=== PATIENT | female | born 1985 ===

== ENCOUNTER 2017-03-21 16:59 | Emergency (ER) | payer MEDICAID ==
[2017-03-21 17:09] VITALS: BP 121/74; PULSE 73; RESP 16; TEMP 98.4; O2SAT 98
--- NOTE | 2017-03-21 17:11 | EDPHY ---
H & P Time Seen by Provider: 03/21/17 17:11 HPI/ROS: Chief complaint. Foot injury HPI. 31-year-old female presents with 2 day history right foot injury. She was running and rolled her foot over. She has pain to the right midfoot. It hurts to walk and move her foot inward. No previous history of fracture. No ankle or knee pain. No other injuries ROS Constitutional. no fever/chills, no weakness Eyes. no problems with vision ENT. no sore throat, no nasal drainage Cardiovascular. no chest pain Respiratory. no shortness of breath, no cough Abdominal. no abdominal pain, no nausea/vomiting, no diarrhea . no problems urinating MS. right foot pain Skin. no rash Lymph. no swollen glands Neuro. no headache, no dizziness, no difficulty walking or with speech Past Medical/Surgical History: Asthma, adrenal and thyroid issues Social History: Single, nonsmoker, no alcohol Smoking Status: Never smoked Physical Exam: General Appearance: Alert well-developed female mild distress vital signs stable Eyes: Pupils equal and round no pallor or injection. ENT, Mouth: Mucous membranes are moist. Respiratory: There are no retractions, lungs are clear to auscultation. Cardiovascular: Regular rate and rhythm. Gastrointestinal: Abdomen is soft and nontender, no masses, bowel sounds normal. Neurological: Awake and alert, sensory and motor exams grossly normal. Skin: Warm and dry, no rashes. Musculoskeletal: Neck is supple nontender. Extremities tenderness to palpation base of 5th metatarsal. Some tenderness to the dorsum of the midfoot over the 4th and 5th metatarsal tarsals. No obvious deformity or swelling. Psychiatric: Patient is oriented X 3, there is no agitation. Constitutional: Initial Vital Signs Temperature (C) 36.9 C 03/21/17 17:00 Heart Rate 73 03/21/17 17:00 Respiratory Rate 16 03/21/17 17:00 Blood Pressure 121/74 H 03/21/17 17:00 O2 Sat (%) 98 03/21/17 17:00 O2 Delivery Mode Room Air Allergies/Adverse Reactions: No Known Allergies Allergy (Verified 03/21/17 17:05) Home Medications: Medication Instructions Recorded Albuterol Sulfate [Proventil Hfa] 6.7 gm 03/21/17 FLUTICASONE/SALMETEROL [ADVAIR HFA 1 puffs 03/21/17 230-21 [facility] INHALER] Medical Decision Making - Diagnostics Imaging Results: Imaging Impressions Foot X-Ray 03/21/17 17:17 Impression: No acute osseous findings. X-ray right foot shows no evidence of fracture ED Course/Re-evaluation: Re-evaluation 5:45 p.m.. Patient is stable. She and I discussed imaging study results, treatment plan including criteria for return importance of follow-up further evaluation. She expresses understanding and agreement patient has an orthotic boot from her fracture last year that was on her left foot. The boot appears to be generic. The boot is replaced on her right foot. Shows good anatomic position and distal motor vascular sensitivity to be intact Differential Diagnosis: I considered fracture, dislocation, sprain Departure - Departure Disposition: Home, Routine, Self-Care Clinical Impression: Foot sprain Qualifiers: Encounter type: initial encounter Laterality: right Qualified Code(s): S93.601A - Unspecified sprain of right foot, initial encounter Condition: Good Instructions: Foot Sprain (ED) Additional Instructions: Easy activity. Boot on for 1 week. Tylenol for discomfort. Activity as tolerated. Return for worsening symptoms. Follow up with Mary Perkins for continuing symptoms. Referrals: Marisol Perkins PA [Primary Care Provider] - 5-7 days, if not improved
== END 2017-03-21 17:55 | disposition home or self-care (01) ==
DX: S93.601A Unspecified sprain of right foot, initial encounter (principal); J45.909 Unspecified asthma, uncomplicated; X50.9XXA Other and unspecified overexertion or strenuous movements or postures, initial encounter; Y99.8 Other external cause status; Y93.02 Activity, running

== ENCOUNTER → 2017-05-25 | Outpatient (CLI) | payer MEDICAID | LOC: CIMAGING 10:15 | PROVIDERS: ATTEND Nurse Practitioner Family | DX: J33.8 Other polyp of sinus (principal) | CPT/HCPCS: 70450-PO ==